=== PATIENT | male | born 1990 | race Caucasian/White ===

== ENCOUNTER 2017-04-04 03:21 | Emergency (ER) | payer SELFPAY ==
[~2017-04-04] VITALS: Ht 167.6 cm; Wt 100.0 kg
[2017-04-04 07:40] VITALS: BP 121/79
[2017-04-04] MEDS ORDERED: BACITRACIN ZINC OINT UDPKT TOP ONE (08:00)
== END 2017-04-04 08:32 | disposition home or self-care (01) ==
LOC: ER 03:37
DX: S90.812A Abrasion, left foot, initial encounter (principal); L03.116 Cellulitis of left lower limb; Z88.0 Allergy status to penicillin; Z87.891 Personal history of nicotine dependence; X58.XXXA Exposure to other specified factors, initial encounter; Y93.89 Activity, other specified; Y92.89 Other specified places as the place of occurrence of the external cause; Y99.8 Other external cause status
CPT/HCPCS: 73610; 99284; Z7610